=== PATIENT | female | born 1940 | race Caucasian/White ===

== ENCOUNTER → 2016-04-09 | Outpatient (CLI) | payer MEDICARE, OTHER | END | disposition home or self-care (01) | LOC: GMAL 11:28 | PROVIDERS: ATTEND Family Medicine | DX: E03.8 Other specified hypothyroidism (principal); R56.9 Unspecified convulsions ==

== ENCOUNTER → 2016-05-09 | Outpatient (CLI) | payer MEDICARE, OTHER ==
--- NOTE | 2016-05-09 14:08 | US ---
EXAM DESCRIPTION: Thyroid CLINICAL HISTORY: THYROID NODULE COMPARISON: MRI cervical spine 10/20/2015. TECHNIQUE: Routine sonographic imaging of the thyroid gland. FINDINGS: The right thyroid lobe measures 5.3 x 1.6 x 1.3 cm. The left lobe and isthmus appear atrophic or surgically absent. The thyroid echotexture is heterogeneous. Several small hypoechoic to isoechoic solid nodules are demonstrated. The largest measures 0.5 x 0.4 x 0.3 cm. IMPRESSION: 1. Heterogeneous appearance of the right thyroid lobe with several small solid nodules measuring up to 0.5 cm. These do not meet criteria for ultrasound-guided biopsy at this time. Recommend follow-up ultrasound in 6-12 months. 2. 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 Electronically signed by: Jens Beard MD 05/09/2016 2:07 PM CDT
== END | disposition home or self-care (01) ==
LOC: US 13:15
PROVIDERS: ATTEND Family Medicine
DX: E04.1 Nontoxic single thyroid nodule (principal)

== ENCOUNTER → 2016-10-14 | Outpatient (CLI) | payer MEDICARE, OTHER | END | disposition home or self-care (01) | LOC: GMAL 14:14 | PROVIDERS: ATTEND Family Medicine | DX: R56.9 Unspecified convulsions (principal); D51.3 Other dietary vitamin B12 deficiency anemia; E55.9 Vitamin D deficiency, unspecified ==

== ENCOUNTER → 2016-12-02 | Outpatient (CLI) | payer MEDICARE, OTHER ==
--- NOTE | 2016-12-02 09:51 | MRI ---
EXAM DESCRIPTION: Lumbar Spine w/o Contrast: MRI CLINICAL HISTORY: RADICULOPATHY COMPARISON: MRI lumbar scan without contrast 10/20/2015. TECHNIQUE: Multiplanar, multiple standard sequences, non contrast MRI, lumbar spine. FINDINGS: Again noted is transitional S1 segment which is partially lumbarized. Rudimentary S1-2 disc which is desiccated but not bulging. Canal and foramina are patent. L5-S1: Disc desiccation and minimal disc space loss. Anterior disc bulging with anterior Modic type II endplate reactive changes. Trace retrolisthesis. Posterior broad-based 4 mm disc bulge. Intimal hypertrophy of the flavum ligaments and facets. No significant canal narrowing, with mild left foraminal narrowing and facet visible around the nerve root. Moderate stenosis of the right foramen with right side disc osteophyte complex impinging the exiting right L5 nerve. L4-5: Disc desiccation and disc space preserved. Trace anterolisthesis. Moderate to severe flavum ligament and facet hypertrophy bilaterally. AP canal diameter 10 mm. Mild to moderate narrowing of the bilateral foramina with bony abutment of the L4 nerve roots bilaterally. L3-4: Minimal disc desiccation. Anterior disc bulge and endplate ridging. Minimal disc space loss. Posterior broad-based 4 mm bulge abutting the thecal sac. Moderate hypertrophy of the flavum ligaments and facets impressing on the posterior thecal sac. AP canal diameter 8.5 mm. Lateral foramina are patent. Focal bright T1 and T2 signal in the L3 vertebral body, not seen on IR sequence. L2-3: Disc desiccation and minimal disc space loss. Anterior bulge and endplate ridging. Anterior Modic type II endplate reactive changes. Anterior broad-based 3 mm disc bulge. Partial left L2 laminectomy and decompression. Moderate hypertrophy of the right flavum ligament and facet. Right foramen patent, moderate narrowing of the left foramen, associated with disc space loss and disc remnant/granulation tissue bulge. L1-2: Minimal disc desiccation with disc space preserved. No bulging. Canal and foramina are patent. Minimal hypertrophy of the flavum ligaments and facets. Conus terminates at L2. T12-L1: Minimal disc desiccation with disc space preserved and no bulging. Canal and foramina are patent. Posterior ligaments and facets are unremarkable. Paravertebral soft tissues show paravertebral muscle atrophy. Normal marrow signal in the remaining vertebral bodies and the posterior elements. Vertebral bodies are not compressed at any level. IMPRESSION: 1. Moderate stenosis of the right L5-S1 foramen with right side disc osteophyte complex and spondylosis and probable compromise of the exiting right L5 nerve. This has progressed since the prior study in 2016. Disc bulge stable. 2. Borderline canal stenosis at L4-5 with hypertrophy of the flavum ligaments and facets is stable since the prior study 3. Posterior broad-based disc bulge and hypertrophy of the posterior ligaments and facets resulting in mild canal stenosis at L3-4, stable since the prior study. Correlate for bilateral L4 radiculopathy. Stable hemangioma L3 vertebral body. 4. Stable changes at L2-3 from partial left L2 laminectomy and decompression and discectomy. However, progressive narrowing of the left foramen and possible encroachment on the left L2 nerve. Correlate for radiculopathy. Electronically signed by: Nirmal Saenz MD 12/02/2016 9:49 AM CDT
== END | disposition home or self-care (01) ==
LOC: MRI 08:47
PROVIDERS: ATTEND Family Medicine
DX: M54.16 Radiculopathy, lumbar region (principal)

== ENCOUNTER → 2016-12-31 | Outpatient (CLI) | payer MEDICARE, OTHER ==
--- NOTE | 2017-01-02 14:40 | MAM ---
EXAM DESCRIPTION: 3D Screening BILATERAL : Digital Mammography. CLINICAL HISTORY: 76 years Female SCREENING . No complaints. No family history of breast cancer. Postmenopausal. Taking HRT more than 5 years ago.. COMPARISON: 2-D digital diagnostic left breast examination 07/20/2015. 2-D digital screening bilateral study 07/10/2015 and 02/14/2014. 2-D digital screening bilateral study. No prior reports available. TECHNIQUE: Bilateral CC and MLO projection full-field images, 3-D tomosynthesis digital mammographic technique. Also bilateral synthesized CC/ MLO full-field images. CAD not utilized. FINDINGS: The breast parenchymal density pattern is: Scattered areas of fibroglandular density. No skin thickening or nipple retraction bilateral axillary lymph nodes. Bilateral solitary microcalcifications.. Skin moles on the lateral right breast. No focal, stellate mass or density, focal asymmetry , and no suspicious microcalcifications bilaterally. Stable mammograms compared to prior study, taking into account differences in mammographic technique IMPRESSION: BI-RADS CATEGORY: 2 - BENIGN FINDINGS. FOLLOW UP: Routine digital bilateral screening, one year interval from December 2016. Written communication explaining the IMPRESSION and follow-up, will be mailed to the patient and referring health care provider. According to the [employer], yearly mammograms are recommended starting at age 40 and continuing as long as a woman is in good health. Any breast change noted on a breast self-exam should be reported promptly to the patient's healthcare provider. Breast MRI is recommended for women with an approximately 20-25% or greater lifetime risk of breast cancer, including women with a strong family history of breast or ovarian cancer and women who have been treated for Hodgkin's disease. A negative mammographic report should not delay tissue diagnosis in patients with significant clinical history or physical findings. Extremely dense breast tissue limits the sensitivity of digital mammography. Electronically signed by: Nirmal Saenz MD 01/02/2017 2:38 PM [employer]
== END ==
LOC: MAMMO 13:53
PROVIDERS: ATTEND Family Medicine
DX: Z12.31 Encounter for screening mammogram for malignant neoplasm of breast (principal)
CPT/HCPCS: 77063; G0202

== ENCOUNTER → 2017-01-13 | Outpatient (CLI) | payer MEDICARE | END | disposition home or self-care (01) | LOC: GMAL 10:43 | PROVIDERS: ATTEND Family Medicine | DX: D53.9 Nutritional anemia, unspecified (principal); E03.9 Hypothyroidism, unspecified; E55.9 Vitamin D deficiency, unspecified ==

== ENCOUNTER → 2018-01-28 | Outpatient (CLI) | payer MEDICARE, OTHER | LOC: GMAL 10:57 | PROVIDERS: ATTEND Family Medicine | DX: D51.3 Other dietary vitamin B12 deficiency anemia (principal); E03.9 Hypothyroidism, unspecified; E55.9 Vitamin D deficiency, unspecified ==

== ENCOUNTER → 2018-02-03 | Outpatient (CLI) | payer MEDICARE, OTHER ==
--- NOTE | 2018-02-04 15:55 | MAM ---
EXAM DESCRIPTION: 3D Screening BILATERAL : Digital Mammography. CLINICAL HISTORY: 77 years Female ANNUAL SCREENING . No complaints. No personal or family history of breast cancer. No childbirth. Postmenopausal 27 years. HRT 5 or more years ago. Lifetime risk of developing breast cancer (Tyrer-Cuzick model)(%): 3.7. COMPARISON: Bilateral screening digital breast tomosynthesis 12/31/2016.. TECHNIQUE: Bilateral CC and MLO projection full-field images, digital tomosynthesis mammographic technique. Bilateral digital 2-D full-field MLO images. CAD not available for tomosynthesis or 2-D images. FINDINGS: The breast parenchymal density pattern is: Scattered areas of fibroglandular density. No skin thickening or nipple retraction. Bilateral solitary microcalcifications. Nodular-type fibroglandular tissues is stable. Bilateral axillary lymph nodes. Skin moles indicated by skin markers inferior and lateral right breast. No new focal, stellate mass or density, focal asymmetry , and no suspicious microcalcifications bilaterally. Stable mammograms compared to prior study. IMPRESSION: Benign exam. BIRAD CATEGORY: 2 BENIGN FINDINGS. RECOMMENDATIONS: FOLLOW UP: Routine digital bilateral mammographic screening, one year interval from January 2018. Written communication explaining the IMPRESSION and follow-up, will be mailed to the patient and referring health care provider. According to the [employer], yearly mammograms are recommended starting at age 40 and continuing as long as a woman is in good health. Any breast change noted on a breast self-exam should be reported promptly to the patient's healthcare provider. Breast MRI is recommended for women with an approximately 20-25% or greater lifetime risk of breast cancer, including women with a strong family history of breast or ovarian cancer and women who have been treated for Hodgkin's disease. A negative mammographic report should not delay tissue diagnosis in patients with significant clinical history or physical findings. Extremely dense breast tissue limits the sensitivity of digital mammography. 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
== END ==
LOC: MAMMO 11:54
PROVIDERS: ATTEND Family Medicine
DX: Z12.31 Encounter for screening mammogram for malignant neoplasm of breast (principal)

== ENCOUNTER → 2018-08-04 | Outpatient (CLI) | payer MEDICARE, OTHER | LOC: GMAL 10:19 | PROVIDERS: ATTEND Family Medicine | DX: Z79.899 Other long term (current) drug therapy (principal); I10 Essential (primary) hypertension; E78.49 Other hyperlipidemia ==

== ENCOUNTER 2018-08-30 09:48 | Emergency (ER) | payer MEDICARE, OTHER ==
--- NOTE | 2018-08-30 10:24 | ED.PDOC ---
History of Present Illness - General Chief Complaint: Skin/Abrasion/Tear Stated Complaint: Rash Time Seen by Provider: 08/30/18 10:03 Source: patient, family - History of Present Illness Initial Comments: pt has had rash x 5 days which began on L arm and has spread to anterior trunk and both arms. Pt also has a sorethroat x 2-3 days . Denies cough or eye problems. Pt does have fever. Pt was started on steroids 2 days ago without improvement. Also started on Keflex 2 days ago Timing/Duration: week Severity: severe Location: torso, extremities Improving Factors: nothing Worsening Factors: nothing Associated Symptoms: edema, fever, itching, malaise, rash, sore throat Allergies/Adverse Reactions: Allergies NO KNOWN ALLERGY Allergy (Verified 08/30/18 10:11) Home Medications: Ambulatory Orders Cephalexin 500 mg PO TID 08/30/18 Levothyroxine Sodium [Synthroid] 100 mcg PO DAILY 08/30/18 Lisinopril 5 mg PO DAILY 08/30/18 Phenytoin Sodium Extended 300 mg PO BEDTIME 08/30/18 Triamcinolone 0.1% Oint [Kenalog 0.1% Ointment] 1 applic TOP BID 08/30/18 methylPREDNISolone TAB [Medrol Tab] 1 tablet PO DAILY 08/30/18 tiZANidine [Zanaflex] 2 mg PO Q6H PRN 08/30/18 Review of Systems - Review of Systems Constitutional: States: fever, malaise EENTM: States: throat pain. Denies: eye pain, blurred vision, tearing, nose congestion Respiratory: Denies: cough Cardiology: States: no symptoms reported Gastrointestinal/Abdominal: States: no symptoms reported Genitourinary: States: no symptoms reported Musculoskeletal: States: no symptoms reported Skin: States: see HPI, rash Neurological: States: no symptoms reported Endocrine: States: no symptoms reported Hematologic/Lymphatic: States: no symptoms reported Past Medical History (General) - Patient Medical History Hx Seizures: Yes Hx Stroke: Yes - TIA +10 years ago Hx of COPD: No Hx Congestive Heart Failure: No Hx Hypertension: Yes Hx Thyroid Disease: Yes - hypo Hx Diabetes: No Surgical History: tonsillectomy, Hysterectomy - Vaccination History Hx Tetanus, Diphtheria Vaccination: No Hx Influenza Vaccination: Yes Hx Pneumococcal Vaccination: Yes - Social History Hx Tobacco Use: No Hx Alcohol Use: Yes Hx Substance Use: No Hx Substance Use Treatment: No Hx Depression: No - Female History Patient is a Female of Child Bearing Age (10 -59 yrs old): No Patient : No Family Medical History - Family History Mother Family History: Unknown Living Status: Physical Exam - Physical Exam General Appearance: Alert, Obvious distress Eyes, Ears, Nose, Throat Exam: PERRL/EOMI, pharyngeal erythema, other - oral mucosal lesions to L cheek and soft palette Neck: non-tender, full range of motion, supple Cardiovascular/Chest: regular rate, rhythm Respiratory: chest non-tender, normal breath sounds Gastrointestinal/Abdominal: normal bowel sounds, non tender, soft Back Exam: normal inspection Extremity: normal range of motion Neurologic: alert, normal mood/affect, oriented x 3 Skin Exam: warm/dry Skin Problem Location: upper extremities - L arm has diffuse erythema and edema to arm and forarm with papular rash as well and excoriations, R arm has papular rash , torso - large area of erythema to L anterior wall, with skin peeling Skin Character: erythema, papules, swelling, tenderness, warm Departure - Departure Clinical Impression: Erythema multiforme, 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 Copy, Patient Portal Self Enrollment Instructions: DI for Abrasion Referrals: Live Solis III, MD [Primary Care Provider] - 1-2 Weeks Home Medications: Ambulatory Orders Cephalexin 500 mg PO TID 08/30/18 Levothyroxine Sodium [Synthroid] 100 mcg PO DAILY 08/30/18 Lisinopril 5 mg PO DAILY 08/30/18 Phenytoin Sodium Extended 300 mg PO BEDTIME 08/30/18 Triamcinolone 0.1% Oint [Kenalog 0.1% Ointment] 1 applic TOP BID 08/30/18 methylPREDNISolone TAB [Medrol Tab] 1 tablet PO DAILY 08/30/18 tiZANidine [Zanaflex] 2 mg PO Q6H PRN 08/30/18 Transfer to Outside Facility - Transfer Information Accepting Facility: [facility] Reason for Transfer: specialized care not available - Dr Rodriguez accepted Pt in transfer to ED at [facility]
[2018-08-30] MEDS ORDERED: diphenhydrAMINE HCL 50 MG/ML VIAL IV ONE (11:28)
[2018-08-30] MEDS ORDERED: ACETAMINOPHEN 325 MG TAB PO ONE (12:21)
[2018-08-30] MEDS ORDERED: SODIUM CHLORIDE 0.9% 1000ML 1,000 ML IVS ONE (13:35)
[2018-08-30] MEDS ORDERED: ceFAZolin SODIUM 1 GM in SODIUM CHL 0.9% 50ML MIN-BAG+ 50 ML IVPB ONE (13:35)
[2018-08-30] MEDS ORDERED: SODIUM CHL 0.9% 50ML MIN-BAG+ 50 ML IVPB ONE (13:39)
[2018-08-30] MEDS ORDERED: ceFAZolin SODIUM 1 GM VIAL ONE (13:39)
[2018-08-30 15:14] VITALS: O2SAT 92
[2018-08-30 15:16] VITALS: BP 149/71; TEMP 99.6
== END 2018-08-30 15:35 | disposition short-term general hospital (02) ==
LOC: ER 09:48
DX: L51.1 Stevens-Johnson syndrome (principal); R50.9 Fever, unspecified; E03.9 Hypothyroidism, unspecified; I10 Essential (primary) hypertension; R56.9 Unspecified convulsions; Z86.73 Personal history of transient ischemic attack (TIA), and cerebral infarction without residual deficits; Z79.899 Other long term (current) drug therapy
CPT/HCPCS: 36415; 80053; 81001; 83605; 85025; 87086; J0690; J1200; J7030; J7050

== ENCOUNTER → 2019-04-13 | Outpatient (CLI) | payer MEDICARE, OTHER | LOC: GMAL 16:51 | PROVIDERS: ATTEND Family Medicine | DX: M25.40 Effusion, unspecified joint (principal); E78.49 Other hyperlipidemia ==

== ENCOUNTER → 2019-04-19 | Outpatient (CLI) | payer MEDICARE, OTHER ==
--- NOTE | 2019-04-20 15:34 | MRI ---
EXAM DESCRIPTION: Lumbar Spine w/o Contrast : Magnetic Resonance Imaging. CLINICAL HISTORY: Low back pain COMPARISON: MRI scan lumbar spine November 2016. TECHNIQUE: Multiplanar, multiple standard sequences, non contrast MRI, lumbar spine. FINDINGS: L5-S1: The disc is well visualized on axial T2 series 501, image 3. L5-S1: Disc desiccation with anterior bulging. 3 mm grade 1 anterolisthesis. Desiccated disc vacuum signal. Moderate disc space loss. Anterior and right side moderate endplate reactive changes. Disc spur complex causing right foraminal stenosis and compromise right L5 nerve. Posterior disc bulge. Minimal degenerative hypertrophy of the posterior flavum ligaments and facet joints (canal elements), more right than left. Canal is patent. Bilateral disc narrowing the subarticular recesses. Mild to moderate left foraminal narrowing. Rudimentary S1-S2 disc. Stable since the prior study. L4-L5: Disc desiccation with disc space maintained. Anterior bulging. Trace posterior bulging. Advanced degenerative hypertrophy of the canal elements. AP canal diameter 9 mm. Moderate bilateral foraminal narrowing. Progressed from the prior study. L3-L4: Disc desiccation with mild disc space loss anterior bulging and endplate ridging and posterior bulging. 2.5 mm grade 1 retrolisthesis. Moderate degenerative hypertrophy of the canal elements. Significant narrowing posterior canal. AP canal diameter 7 mm. This has progressed since the prior study. Mild narrowing of the left foramen and [id number] narrowing of the right foramen. L2-L3: Disc desiccation no significant disc space loss posteriorly into the left of midline. 4 mm grade 1 retrolisthesis and posterior disc osteophyte complex encroaching on the canal and the left subarticular recess. Also abutting the descending left L2 nerve. This has progressed since the prior study. Previous partial left laminectomy and decompression. Left lateral Osteophyte complex encroaching on the foramen which is moderate to severely narrowed. Moderate narrowing right foramen. Again noted are postsurgical changes posterior to the left of midline in the soft tissues with metallic artifact. L1-L2: Disc desiccation with disc space maintained. No posterior bulging. Thickened tissue again noted in the ventral epidural space, left of midline extending from this disc space to the L2-3 disc space. Minimal degenerative hypertrophy of the canal elements. Mild bilateral foraminal narrowing. Stable since the prior study. T12-L1. New sclerosis in the sub-superior L1 endplate, with with minimal depression of the anterior endplate but no marrow edema. No retropulsion of the endplate. Disc desiccation with no bulging anterior or posterior. Mild degenerative hypertrophy of the canal elements. Canal and foramina are patent. Circumscribed hyperintense T1 and T2 lesions in the S1 vertebral body, L5 vertebral body, L4 and L3 vertebral bodies, and T11 and T12 vertebral bodies are stable and most likely hemangiomas.. Right L1-L5 dextroscoliosis stable. Paravertebral soft tissues postoperative changes as noted. Paraspinal muscle atrophy. Question of mild hydronephrosis or cysts in the bilateral collecting systems no significant change from the prior study.. Distal cord normal signal and caliber. Inhomogeneous marrow signal in the remaining vertebral bodies and the posterior elements. Vertebral bodies are not compressed at any level. IMPRESSION: 1. New onset of mild compression injury superior L1 endplate but no retropulsion and no herniation of the T12-L1 disc. No canal or foraminal stenosis. 2. Progressive spondylosis left side L2-L3 with encroachment on the left lateral recess and abutting the descending left L2 nerve, compared to the prior study. 3. Posterior disc space loss, posterior spondylosis, retrolisthesis, and canal stenosis and progressed at the L3-4 level since the prior study. No further neural foraminal narrowing. 4. Mild central canal stenosis at L4-5 is progressed since the prior study. 5. Stable L5-S1 right neural foraminal stenosis and right side spondylosis since the prior study. Electronically signed by: Nirmal Saenz MD 04/20/2019 3:32 PM [facility]
== END ==
LOC: MRI 14:00
PROVIDERS: ATTEND Family Medicine
DX: M51.86 Other intervertebral disc disorders, lumbar region (principal); M47.896 Other spondylosis, lumbar region; M48.061 Spinal stenosis, lumbar region without neurogenic claudication; M48.07 Spinal stenosis, lumbosacral region; M43.16 Spondylolisthesis, lumbar region

== ENCOUNTER → 2019-08-30 | Outpatient (CLI) | payer MEDICARE, OTHER | LOC: GMAL 10:52 | PROVIDERS: ATTEND Family Medicine | DX: D51.3 Other dietary vitamin B12 deficiency anemia (principal); E03.9 Hypothyroidism, unspecified; E55.9 Vitamin D deficiency, unspecified; I10 Essential (primary) hypertension; E78.49 Other hyperlipidemia ==

== ENCOUNTER → 2019-09-01 | Outpatient (CLI) | payer MEDICARE, OTHER ==
--- NOTE | 2019-09-01 15:10 | RAD ---
EXAM DESCRIPTION: Lumbar Spine 5 Views CLINICAL HISTORY: 78 years Female, LOW BACK PAIN COMPARISON: None available. FINDINGS: The vertebral body heights are well-maintained with no acute compression deformity. Severe multilevel degenerative disc disease and facet arthropathy, worse at L5-S1 level. Minimal grade 1 anterolisthesis of L4 over L5. The visualized prevertebral and paravertebral soft tissues appear grossly unremarkable. IMPRESSION: Severe multilevel degenerative disc disease and facet arthropathy, worse at L5-S1 level. Minimal grade 1 anterolisthesis of L4 over L5. Electronically signed by: Mena Castro MD 09/01/2019 3:09 PM CDT
== END ==
LOC: RESP 13:31
PROVIDERS: ATTEND Family Medicine Sports Medicine
DX: M48.062 Spinal stenosis, lumbar region with neurogenic claudication (principal); M51.36 Other intervertebral disc degeneration, lumbar region; M12.9 Arthropathy, unspecified; M43.16 Spondylolisthesis, lumbar region

== ENCOUNTER → 2019-10-28 | Outpatient (CLI) | payer MEDICARE, OTHER | LOC: GMAL 15:06 | PROVIDERS: ATTEND Family Medicine | DX: R56.9 Unspecified convulsions (principal); E83.42 Hypomagnesemia; E03.9 Hypothyroidism, unspecified; Z79.899 Other long term (current) drug therapy ==

== ENCOUNTER → 2019-11-29 | Outpatient (CLI) | payer MEDICARE, OTHER | LOC: GMAL 16:49 | PROVIDERS: ATTEND Family Medicine | DX: D51.3 Other dietary vitamin B12 deficiency anemia (principal) ==

== ENCOUNTER → 2019-12-31 | Outpatient (CLI) | payer MEDICARE, OTHER ==
--- NOTE | 2020-01-03 09:06 | MRI ---
Study: MRI of the Right Hip. MRI of the Left Hip. Indication: OSTEOARTHRITIS OF THE HIPS Technique: Multiplanar, multi sequence MRI of the right hip and MRI of the left hip were obtained without intravenous contrast. Comparison: None. Findings: Lower lumbar disc disease. Moderate pubic symphysis osteoarthritis. Colonic diverticulosis. High-grade tendinosis and attenuation bilateral hamstring tendon origins, right greater than left. Tendinosis bilateral gluteus minimus/medius tendon insertions. Mild bilateral greater trochanteric bursal edema. Severe right hip osteoarthritis. Effectively grade 4 chondral loss of the right hip joint space, most pronounced posterior superiorly. Patchy cortical remodeling and subchondral marrow change. Large joint line osteophytes. Labral degeneration. Moderate size joint effusion. Severe left hip osteoarthritis, predominantly grade 4 but with additional areas of grade 3 chondral surface irregularity throughout the joint space. Multifocal cortical remodeling left femoral head with mild subchondral marrow change. Mild subchondral cystic change of the acetabulum noted as well. Large joint line osteophyte. Moderate size joint effusion. Left hip labral degeneration Impression: Severe bilateral hip osteoarthritis, right greater than left, with labral degeneration and joint effusions bilaterally. No acute fracture or osteonecrosis. Additional findings as above. Electronically signed by: Siva Fountain MD 01/03/2020 9:04 AM [facility]
== END ==
LOC: MRI 13:00
PROVIDERS: ATTEND Family Medicine
DX: M16.0 Bilateral primary osteoarthritis of hip (principal); M25.451 Effusion, right hip; M25.452 Effusion, left hip